=== PATIENT | male | born 1990 | race Caucasian/White ===

== ENCOUNTER 2019-06-20 20:33 | Emergency (ER) | payer SELFPAY ==
--- NOTE | 2019-06-20 20:53 | UC ---
Throat Pain/Nasal Blaise HPI - HPI Summary HPI Summary: 2 days of swollen erythemic tonsils with exudates, fevers and swollen anterior cervical lymph- - History of Current Complaint Chief Complaint: UCRespiratory Stated Complaint: SORE THROAT/WHITE SPOTS Time Seen by Provider: 06/20/19 20:53 Hx Obtained From: Patient Onset/Duration: Sudden Onset, Lasting Days Pain Intensity: 6 Pain Scale Used: 0-10 Numeric Cough: None Associated Signs & Symptoms: Positive: Fever - Allergies/Home Medications Allergies/Adverse Reactions: Allergies Allergy/AdvReac Type Severity Reaction Status Date / Time No Known Allergies Allergy Verified 06/20/19 20:48 Home Medications: Home Medications Ibuprofen TAB* [Advil TAB*] 800 mg PO Q6H PRN 06/20/19 [History Confirmed ] PMH/Surg Hx/FS Hx/Imm Hx Previously Healthy: Yes - Surgical History Surgical History: Yes Surgery Procedure, Year, and Place: wisdom teeth extraction - Family History Known Family History: Positive: None - Social History Occupation: Employed Part-time, Student Lives: With Family Alcohol Use: Occasionally Substance Use Type: None Length of Time of Smoking/Using Tobacco: 1 month When Did the Patient Quit Smoking/Using Tobacco: 3 years ago Review of Systems All Other Systems Reviewed And Are Negative: Yes Constitutional: Positive: Chills Skin: Positive: Negative Eyes: Positive: Negative ENT: Positive: Sore Throat Respiratory: Positive: Negative Cardiovascular: Positive: Negative Gastrointestinal: Positive: Negative Genitourinary: Positive: Negative Motor: Positive: Negative Neurovascular: Positive: Negative Musculoskeletal: Positive: Negative Neurological: Positive: Negative Psychological: Positive: Negative Is Patient Immunocompromised?: No Physical Exam Triage Information Reviewed: Yes Appearance: Well-Appearing, No Pain Distress, Well-Nourished Vital Signs Reviewed: Yes Eye Exam: Normal Eyes: Positive: Conjunctiva Clear ENT Exam: Other ENT: Positive: Normal ENT inspection, Hearing grossly normal, Pharyngeal erythema, TMs normal, Tonsillar swelling, Tonsillar exudate, Uvula midline. Negative: Nasal congestion, Sinus tenderness Dental Exam: Normal Neck exam: Other Neck: Positive: Supple, Nontender, Enlarged Nodes @ - anterior cervical lymph swelling Respiratory Exam: Normal Respiratory: Positive: Chest non-tender, Lungs clear, Normal breath sounds, No respiratory distress, No accessory muscle use Cardiovascular Exam: Normal Cardiovascular: Positive: RRR, No Murmur, Pulses Normal, Brisk Capillary Refill Musculoskeletal Exam: Normal Musculoskeletal: Positive: Strength Intact, ROM Intact, No Edema Neurological Exam: Normal Neurological: Positive: Alert, Muscle Tone Normal Psychological Exam: Normal Skin Exam: Normal Throat Pain/Nasal Course/Dx - Course Course Of Treatment: prednisone, amoxicillin Tylenol ibuprofen for pain follow with pending sale to [facility] or pcp prn - Differential Dx/Diagnosis Provider Diagnosis: Exudative pharyngitis Discharge ED - Sign-Out/Discharge Documenting (check all that apply): Patient Departure All imaging exams completed and their final reports reviewed: No Studies - Discharge Plan Condition: Stable Disposition: HOME Prescriptions: Amoxicillin PO (*) [Amoxicillin 500 MG CAP*] 500 mg PO TID #30 cap predniSONE TAB* [Deltasone TAB*] 50 mg PO DAILY #3 tab Patient Education Materials: Pharyngitis (ED) [facility]errals: [facility] [[facility] - If Needed - Billing Disposition and Condition Condition: STABLE Disposition: Home
[2019-06-20 20:55] VITALS: BP 143/75
[2019-06-20] MEDS ORDERED: Amoxicillin PO (*) 500 MG CAP PO ONE (21:07)
[2019-06-20] MEDS ORDERED: predniSONE TAB* 20 MG PO ONE (21:07)
== END 2019-06-20 21:17 | disposition home or self-care (01) ==
LOC: UCCORT 20:33
DX: J02.9 Acute pharyngitis, unspecified (principal); Z87.891 Personal history of nicotine dependence
CPT/HCPCS: 87651; 99202; A9270-GY; G0463; J7512